=== PATIENT | male | born 1985 ===

== ENCOUNTER 2023-09-24 22:27 | Emergency (ER) | payer SELFPAY ==
[~2023-09-24] VITALS: Ht 177.8 cm; Wt 104.5 kg
[2023-09-24 22:28] VITALS: BP 140/102; TEMP 97.6; O2SAT 95
[2023-09-25 00:13] LABS: Trichomonas vaginalis (AMP) NOT DETECTED (NEGATIVE)
[2023-09-25 00:38] LABS: GC DNA AMPLIFICATION NEGATIVE (NEGATIVE)
== END 2023-09-25 00:29 | disposition left against medical advice (07) ==
LOC: M ED 22:27
DX: Z53.21 Procedure and treatment not carried out due to patient leaving prior to being seen by health care provider (principal)